=== PATIENT | male | born 1950 | race Caucasian/White ===

== ENCOUNTER 2016-09-26 10:04 | Inpatient (IN) | payer OTHER ==
[~2016-09-26] VITALS: Ht 170.2 cm; Wt 87.0 kg
[~2016-09-26 10:04] MED LIST: ASPIR-TRIN325 M1 PO; ASPIRIN E.C.81 M1 PO; ASPIRIN EC325 MG PO; ASPIRIN81 M1 PO; AXIRON90 ML TD; BRINTELLIX20 MG PO; CAFFEINE200 M1 PO; CELEBREX200 MG PO; CELECOXIB200 MG PO; CLOPIDOGREL75 MG PO; COMBIVENT RESPIM4 GM IH; CYCLOBENZAPRINE10 MG PO; CYMBALTA30 MG PO; CYMBALTA60 MG PO; FEOSOL325 MG PO; FERROCITE324 MG PO; GABAPENTIN800 MG PO; GLUCOPHAGE1000 MG PO; HYDROCODON-ACE1 EAC5 PO; HYZAAR 100-11 TABLET PO; IBUPROFEN800 MG PO; LIPITOR20 MG PO; LOSARTAN-HCTZ1 EAC3 PO; MELOXICAM15 MG PO; MORPHINE SULFAT15 MG PO; MULTI-VITAMIN-1 EACH PO; NIFEDIPINE ER90 MG PO; OXYCODONE HCL15 MG PO; OXYCODONE HCL5 MG PO; OXYCONTIN15 MG PO; Procardia XL,Adalat PO; SENOKOT S,PE1 TABLET PO; ST. JOSEPH ASPI81 MG PO; TAMSULOSIN HCL0.4 MG PO; THERAGRAN1 TABLET PO; TYLENOL REGULA325 MG PO; VITAMIN B125000 MCG PO; Vicodin,Lortab 5/500 PO
[2016-09-26 11:06] LABS: HEMATOCRIT 26.8 % (38.0-50.0); MCH 31.7 PG (29.0-34.0); MCV 93.4 FL (86-99); PLATELET COUNT 428 K/uL (156-360); RBC DIS.WIDTH-CV 13.5 % (11.8-14.6); RBC DIS.WIDTH-SD 44.4 % (39-53); RED BLOOD COUNT 2.87 M/uL (4.00-5.50); WHITE BLOOD COUNT 19.4 K/uL (4.1-10.2)
[2016-09-26 11:19] LABS: CHLORIDE 98 mEq/L (99-109); POTASSIUM 5.1 mEq/L (3.7-5.4); SODIUM 127 mEq/L (136-147)
[2016-09-26 11:20] LABS: GLUCOSE 101 mg/dL (70-99)
[2016-09-26 11:22] LABS: ANION GAP 12 MEQ/L (2-14)
[2016-09-26 11:24] LABS: GFR ESTIMATE (CALCULATED) 23 mL/min/
[2016-09-26 11:25] LABS: UREA NITROGEN (BUN) 56 mg/dL (9-23)
[2016-09-26 12:39] LABS: TOTAL BILIRUBIN 0.3 mg/dL (0.0-1.0)
[2016-09-26 12:40] LABS: ALKALINE PHOSPHATASE 94 IU/L (3-129)
[2016-09-26 12:42] LABS: DIRECT BILIRUBIN 0.2 mg/dL (0.0-0.3)
[2016-09-26 12:43] LABS: LIPASE 10 U/L (1.0-51.0)
[2016-09-26 12:47] LABS: TROP-I INTERPRETATION NEGATIVE; TROPONIN-I 0.02 ng/mL (0.0-0.30)
[2016-09-26 13:16] LABS: ADD MIUA? NO; BILIRUBIN NEGATIVE; BLOOD NEGATIVE; COLOR YELLOW ((YELLOW)); GLUCOSE (STRIP) NEGATIVE; KETONES NEGATIVE; LEUKOCYTES NEGATIVE; NITRITE NEGATIVE; PROTEIN (STRIP) 30; UCUL ADDED? NO; UROBILINOGEN 0.2 MG/DL (0.2-1.0)
[2016-09-26] MEDS ORDERED: LOSARTAN POTAS100 MG PO (14:26)
[2016-09-26] MEDS ORDERED: IBUPROFEN800 MG PO (14:26)
[2016-09-26] MEDS ORDERED: ALBUTEROL2.5 MG/3 M IH (14:27)
[2016-09-26] MEDS ORDERED: ACETAMINOPHEN325 M1 PO (14:32)
[2016-09-26] MEDS ORDERED: OXYCODONE HCL15 MG PO (14:34)
[2016-09-26 18:42] LABS: HEMATOCRIT 26.6 % (38.0-50.0); MCH 31.9 PG (29.0-34.0); MCHC 34.2 G/DL (30.0-36.0); MCV 93.3 FL (86-99); PLATELET COUNT 440 K/uL (156-360); RBC DIS.WIDTH-CV 13.6 % (11.8-14.6); RBC DIS.WIDTH-SD 44.4 % (39-53); RED BLOOD COUNT 2.85 M/uL (4.00-5.50); WHITE BLOOD COUNT 19.7 K/uL (4.1-10.2)
[2016-09-26 18:49] LABS: CHLORIDE 104 mEq/L (99-109); POTASSIUM 5.1 mEq/L (3.7-5.4); SODIUM 132 mEq/L (136-147)
[2016-09-26 18:51] LABS: GLUCOSE 118 mg/dL (70-99)
[2016-09-26 18:53] LABS: ANION GAP 12 MEQ/L (2-14)
[2016-09-26 18:55] LABS: GFR ESTIMATE (CALCULATED) 28 mL/min/
[2016-09-26 18:56] LABS: UREA NITROGEN (BUN) 49 mg/dL (9-23)
[2016-09-26 19:01] VITALS: BP 150/81
[2016-09-26 19:38] LABS: EOSINOPHIL (%) 0.3 % (0-5); EOSINOPHIL COUNT 0.1 K/uL (0-0.3); HEMATOLOGY COMMENT 1 SMEAR COMPATIBLE; IMMATURE GRANULOCYTE (%) 0.4 % (0.0-0.7); IMMATURE GRANULOCYTE COUNT 0.8 K/uL; LYMPHOCYTE COUNT 1.1 K/uL (1.0-2.8); MONOCYTE (%) 9.8 % (3-12); MONOCYTE COUNT 1.9 K/uL (0-0.8); NEUTROPHIL (%) 83.9 % (45-76); NEUTROPHIL COUNT 16.5 K/uL (1.8-6.4); PLAT.SUFFICIENCY ADEQUATE; USER ID NPD
[2016-09-26 20:49] VITALS: BP 136/78
[2016-09-26 22:41] VITALS: BP 115/61
[2016-09-26 22:54] LABS: POINT-OF-CARE METER ID UU13113725
[2016-09-27 03:06] VITALS: BP 137/80
[2016-09-27 05:57] LABS: POINT-OF-CARE METER ID UU13113725
[2016-09-27 06:09] LABS: ABSOLUTE RETICULOCYTE CT. 0.04 M/uL (0.02-0.08); HEMATOCRIT 26.3 % (38.0-50.0); IMM.RETIC FRACTION 21.9 % (3-19); MCH 32.2 PG (29.0-34.0); MCHC 34.6 G/DL (30.0-36.0); MCV 92.9 FL (86-99); MEAN PLAT.VOLUME 9.1 uM^3 (9.0-12.4); PLATELET COUNT 408 K/uL (156-360); RBC DIS.WIDTH-CV 13.9 % (11.8-14.6); RED BLOOD COUNT 2.83 M/uL (4.00-5.50); RETICULOCYTE COUNT 1.5 % (0.5-1.8); WHITE BLOOD COUNT 18.9 K/uL (4.1-10.2)
[2016-09-27 06:38] LABS: ANION GAP 12 MEQ/L (2-14); CHLORIDE 105 MEQ/L (99-109); EOSINOPHIL (%) 0.2 % (0-5); GFR ESTIMATE (CALCULATED) 38 mL/min/; IMMATURE GRANULOCYTE (%) 0.3 % (0.0-0.7); IMMATURE GRANULOCYTE COUNT 0.1 K/uL; IRON 12 MCG/DL (35-150); LYMPHOCYTE COUNT 0.9 K/uL (1.0-2.8); MONOCYTE (%) 12.4 % (3-12); MONOCYTE COUNT 2.3 K/uL (0-0.8); NEUTROPHIL (%) 82.2 % (45-76); NEUTROPHIL COUNT 15.5 K/uL (1.8-6.4); POTASSIUM 4.7 MEQ/L (3.7-5.4); SAMPLE HEMOLYSIS CHECK 0; SAMPLE ICTERIC CHECK 0; SAMPLE LIPEMIA CHECK 0; SODIUM 133 MEQ/L (136-147); UREA NITROGEN (BUN) 40 mg/dL (9-23)
[2016-09-27 06:43] LABS: GLUCOSE 86 mg/dL (70-99)
[2016-09-27 08:26] VITALS: BP 137/79
[2016-09-27 10:15] LABS: FERRITIN 230 NG/ML (22-322)
[2016-09-27 11:23] LABS: POINT-OF-CARE METER ID UU13113725
[2016-09-27 11:39] VITALS: BP 113/75
[2016-09-27 15:57] LABS: C DIFF TOXIN NEGATIVE (NEGATIVE)
[2016-09-27 15:59] LABS: POINT-OF-CARE METER ID UU13113725
[2016-09-27 16:11] VITALS: BP 119/75
[2016-09-27 16:22] LABS: PROBE CHECK PASS; SPECIMEN PROCESSING CONTROL PASS
[2016-09-27 20:25] LABS: UR CREATININE CONCENTRATION 83.2 MG/DL
[2016-09-27 22:02] LABS: URINE TOTAL PROTEIN 93 MG/DL (0-10)
[2016-09-27 23:36] VITALS: BP 114/58
[2016-09-28 06:17] LABS: POINT-OF-CARE METER ID UU13113725
[2016-09-28 07:11] LABS: MCH 30.6 PG (29.0-34.0); MCHC 32.6 G/DL (30.0-36.0); MCV 93.9 FL (86-99); MEAN PLAT.VOLUME 9.1 uM^3 (9.0-12.4); PLATELET COUNT 427 K/uL (156-360); RBC DIS.WIDTH-CV 14.4 % (11.8-14.6); RBC DIS.WIDTH-SD 49.5 % (39-53); WHITE BLOOD COUNT 16.5 K/uL (4.1-10.2)
[2016-09-28 07:31] LABS: EOSINOPHIL (%) 0.2 % (0-5); IMMATURE GRANULOCYTE (%) 0.5 % (0.0-0.7); IMMATURE GRANULOCYTE COUNT 0.1 K/uL; LYMPHOCYTE COUNT 1.7 K/uL (1.0-2.8); MONOCYTE COUNT 1.2 K/uL (0-0.8); NEUTROPHIL (%) 81.9 % (45-76); NEUTROPHIL COUNT 13.5 K/uL (1.8-6.4)
[2016-09-28 07:41] LABS: C3 COMPLEMENT 148 MG/DL (58-170); C4 COMPLEMENT 30 MG/DL (10-40)
[2016-09-28 08:00] VITALS: BP 124/67
[2016-09-28 08:03] LABS: INTACT PARATHYROID HORMONE 57 pg/mL (10-69)
[2016-09-28 08:23] LABS: ALKALINE PHOSPHATASE 96 IU/L (3-129); ANION GAP 14 MEQ/L (2-14); CHLORIDE 106 MEQ/L (99-109); GFR ESTIMATE (CALCULATED) 50 mL/min/; GLUCOSE 80 mg/dL (70-99); POTASSIUM 4.2 MEQ/L (3.7-5.4); SAMPLE HEMOLYSIS CHECK 0; SAMPLE ICTERIC CHECK 0; SAMPLE LIPEMIA CHECK 0; SODIUM 136 MEQ/L (136-147); TOTAL BILIRUBIN 0.3 MG/DL (0.0-1.0); UREA NITROGEN (BUN) 29 mg/dL (9-23)
[2016-09-28 10:54] LABS: HBSG INDEX 0.21
[2016-09-28 10:55] LABS: AHBS INDEX 0.23; HEPATITIS B SURFACE ANTIBODY Nonreactive; HPCA INDEX 0.37
[2016-09-28 11:28] LABS: POINT-OF-CARE METER ID UU13113725
[2016-09-28 11:33] VITALS: BP 128/70
[2016-09-28 13:05] LABS: IFE GEL NO. 28-4
[2016-09-28 16:15] VITALS: BP 118/68
[2016-09-28 17:00] VITALS: BP 120/73
[2016-09-28 17:42] LABS: INTER. NORMALIZED RATIO 1.1; PROTHROMBIN TIME 11.4 (9.2-11.2); PTT 34.8 (25-32)
[2016-09-28 19:47] VITALS: BP 108/57
[2016-09-29] VITALS: BP 111/68
[2016-09-29 04:00] VITALS: BP 139/84
[2016-09-29 06:24] LABS: CARBON DIOXIDE (BICARBONATE) 20.1 MEQ/L (20-31)
[2016-09-29 07:08] LABS: MCHC 34.4 G/DL (30.0-36.0); MCV 92.9 FL (86-99); MEAN PLAT.VOLUME 9.3 uM^3 (9.0-12.4); PLATELET COUNT 506 K/uL (156-360); RBC DIS.WIDTH-CV 14.6 % (11.8-14.6); RBC DIS.WIDTH-SD 49.7 % (39-53); RED BLOOD COUNT 2.69 M/uL (4.00-5.50)
[2016-09-29 07:52] LABS: ANION GAP 11 MEQ/L (2-14); ANION GAP 12 MEQ/L (2-14); CHLORIDE 105 MEQ/L (99-109); GFR ESTIMATE (CALCULATED) > 59 mL/min/; POTASSIUM 4.3 MEQ/L (3.7-5.4); SAMPLE HEMOLYSIS CHECK 0; SAMPLE ICTERIC CHECK 0; SAMPLE LIPEMIA CHECK 0; SODIUM 135 MEQ/L (136-147); UREA NITROGEN (BUN) 25 mg/dL (9-23); UREA NITROGEN (BUN) 26 mg/dL (9-23)
[2016-09-29 07:54] LABS: GLUCOSE 103 mg/dL (70-99); GLUCOSE 104 mg/dL (70-99)
[2016-09-29 08:26] LABS: ABS NEUTROPHIL COUNT 14.42; EOSINOPHIL (%) 0.2 % (0-5); HYPOCHROMASIA 1+; IMMATURE GRANULOCYTE (%) 0.9 % (0.0-0.7); IMMATURE GRANULOCYTE COUNT 0.2 K/uL; LYMPHOCYTE COUNT 1.6 K/uL (1.0-2.8); MONOCYTE COUNT 1.8 K/uL (0-0.8); NEUTROPHIL (%) 79.7 % (45-76); NEUTROPHIL COUNT 14.4 K/uL (1.8-6.4); PLAT.SUFFICIENCY INCREASED; POLYCHROMASIA OCC; USER ID MCB
[2016-09-29 08:44] VITALS: BP 114/65
[2016-09-29 08:53] LABS: POINT-OF-CARE METER ID UU13113781; POINT-OF-CARE USER ID NUTSLF44
[2016-09-29 11:46] VITALS: BP 112/74
[2016-09-29 12:28] LABS: POINT-OF-CARE METER ID UU13113781; POINT-OF-CARE USER ID NUTSLF44
[2016-09-29 15:46] VITALS: BP 104/64
[2016-09-29 17:15] LABS: POINT-OF-CARE METER ID UU13113781; POINT-OF-CARE USER ID NUTSLF44
[2016-09-29 19:50] VITALS: BP 115/72
[2016-09-30] VITALS (7 sets, daily range): BP systolic 118–157; BP diastolic 55–86
[2016-09-30 03:27] LABS: HEMATOCRIT 25.5 % (38.0-50.0); MCH 31.4 PG (29.0-34.0); MCHC 33.7 G/DL (30.0-36.0); MCV 93.1 FL (86-99); MEAN PLAT.VOLUME 8.3 uM^3 (9.0-12.4); PLATELET COUNT 554 K/uL (156-360); RBC DIS.WIDTH-CV 14.4 % (11.8-14.6); RBC DIS.WIDTH-SD 46.6 % (39-53); RED BLOOD COUNT 2.74 M/uL (4.00-5.50); WHITE BLOOD COUNT 16.2 K/uL (4.1-10.2)
[2016-09-30 03:37] LABS: EOSINOPHIL (%) 0.5 % (0-5); EOSINOPHIL COUNT 0.1 K/uL (0-0.3); IMMATURE GRANULOCYTE (%) 1.9 % (0.0-0.7); LYMPHOCYTE COUNT 1.2 K/uL (1.0-2.8); MONOCYTE (%) 10.2 % (3-12); MONOCYTE COUNT 1.7 K/uL (0-0.8)
[2016-09-30 03:58] LABS: CHLORIDE 107 mEq/L (99-109); POTASSIUM 4.4 mEq/L (3.7-5.4); SODIUM 137 mEq/L (136-147)
[2016-09-30 04:04] LABS: CHLORIDE 108 mEq/L (99-109); GLUCOSE 129 mg/dL (70-99); POTASSIUM 4.5 mEq/L (3.7-5.4); SODIUM 137 mEq/L (136-147)
[2016-09-30 04:05] LABS: GLUCOSE 128 mg/dL (70-99)
[2016-09-30 04:06] LABS: ANION GAP 10 MEQ/L (2-14)
[2016-09-30 04:07] LABS: ANION GAP 11 MEQ/L (2-14)
[2016-09-30 04:08] LABS: GFR ESTIMATE (CALCULATED) 54 mL/min/
[2016-09-30 04:09] LABS: GFR ESTIMATE (CALCULATED) 54 mL/min/; UREA NITROGEN (BUN) 27 mg/dL (9-23)
[2016-09-30 04:10] LABS: UREA NITROGEN (BUN) 26 mg/dL (9-23)
[2016-09-30 21:31] LABS: METH RESISTANT S AUREUS PCR NEGATIVE (NEGATIVE)
[2016-09-30 21:32] LABS: PROBE CHECK PASS; SPECIMEN PROCESSING CONTROL PASS
[2016-09-30 21:36] LABS: POINT-OF-CARE METER ID UU14174216
[2016-09-30 22:02] LABS: POINT-OF-CARE METER ID UU14174216
[2016-10-01 00:19] LABS: CHLORIDE 107 mEq/L (99-109); SODIUM 138 mEq/L (136-147)
[2016-10-01 00:21] LABS: GLUCOSE 158 mg/dL (70-99)
[2016-10-01 00:22] LABS: ANION GAP 12 MEQ/L (2-14); POTASSIUM 5.5 mEq/L (3.7-5.4)
[2016-10-01 00:25] LABS: GFR ESTIMATE (CALCULATED) 46 mL/min/
[2016-10-01 00:26] LABS: UREA NITROGEN (BUN) 29 mg/dL (9-23)
[2016-10-01 00:32] LABS: HEMATOCRIT 28.3 % (38.0-50.0); MCV 94.3 FL (86-99); WHITE BLOOD COUNT 19.4 K/uL (4.1-10.2)
[2016-10-01 00:33] LABS: MCH 31.3 PG (29.0-34.0); MCHC 33.2 G/DL (30.0-36.0); MEAN PLAT.VOLUME 9.3 uM^3 (9.0-12.4); MONOCYTE (%) 2.6 % (3-12); PLATELET COUNT 645 K/uL (156-360); RBC DIS.WIDTH-CV 14.6 % (11.8-14.6)
[2016-10-01 00:35] LABS: EOSINOPHIL (%) 0 % (0-5); IMMATURE GRANULOCYTE (%) 1.9 % (0.0-0.7); IMMATURE GRANULOCYTE COUNT 0.4 K/uL; LYMPHOCYTE COUNT 0.9 K/uL (1.0-2.8); MONOCYTE COUNT 0.5 K/uL (0-0.8); NEUTROPHIL (%) 90.7 % (45-76); NEUTROPHIL COUNT 17.6 K/uL (1.8-6.4)
[2016-10-01 04:28] VITALS: BP 136/74
[2016-10-01 07:04] VITALS: BP 136/75
[2016-10-01] MEDS ORDERED: VITAMIN D-32000 UNI2 PO (07:23)
[2016-10-01] MEDS ORDERED: BUSPAR10 MG PO (07:23)
[2016-10-01] MEDS ORDERED: AMOX TR-K CLV1 EAC4 PO (07:23)
[2016-10-01] MEDS ORDERED: SPIRIVA RESPIMAT4 GM IH (07:23)
[2016-10-01] MEDS ORDERED: PREDNISONE20 MG PO (07:23)
[2016-10-01] MEDS ORDERED: CARDIZEM CD,CA240 MG PO (07:23)
[2016-10-01 07:38] LABS: POINT-OF-CARE METER ID UU13113781; POINT-OF-CARE USER ID NUTSLF44
[2016-10-01 07:42] LABS: INTERNAL CONTROL VALID? YES
[2016-10-01 08:25] LABS: INTER. NORMALIZED RATIO 1.1; PROTHROMBIN TIME 11.4 (9.2-11.2)
[2016-10-01 08:29] LABS: PTT 33.1 (25-32)
[2016-10-01 11:55] VITALS: BP 138/90
[2016-10-01 11:58] LABS: TYPE OF FLUID THORACENTESIS
[2016-10-01 12:02] LABS: POINT-OF-CARE METER ID UU13113781; POINT-OF-CARE USER ID NUTSLF44
[2016-10-01 12:22] LABS: BODY FLUID RBC'S 3000 /MM^3 (0-100); BODY FLUID WBC'S 127 /MM^3 (0-500)
[2016-10-01] MEDS ORDERED: XARELTO20 MG PO (12:29)
[2016-10-01 12:35] LABS: BODY FLUID LDH 170 IU/L; BODY FLUID PROTEIN 3.2 G/DL
[2016-10-01 12:43] LABS: BODY FLUID EOSINOPHILS 1 % (0-25); MONO RAW COUNT 65; MONONUCLEAR WBC'S 65 %; POLY RAW COUNT 34; POLYNUCLEAR WBC'S 34 % (0-25)
[2016-10-01 13:23] LABS: LACTATE DEHYDROGENASE 126 IU/L (20-246)
[2016-10-01 13:26] LABS: GLUCOSE 114 mg/dL (70-99)
[2016-10-01 14:00] VITALS: BP 138/78
[2016-10-02 09:26] LABS: IFE GEL NO. 29-3
[2016-10-02 22:44] LABS: BODY FLUID PH 7.9 (())
== END 2016-10-01 14:00 | disposition home or self-care (01) | DRG 190 ==
LOC: RME 10:04 → EME 10:04 → EDOF 15:49 → 5EAST 15:49 → 4EAST 09-28 16:52
PROVIDERS: Family Medicine; Internal Medicine; Internal Medicine Cardiovascular Disease; Internal Medicine Infectious Disease; Internal Medicine Pulmonary Disease; Nurse Practitioner Adult Health; Pediatrics; Physician Assistant; Radiology Diagnostic Radiology
PROC: 0W993ZX Drainage of Right Pleural Cavity, Percutaneous Approach, Diagnostic (ICD-10-PCS; principal; 2016-10-01)
DX: J44.0 Chronic obstructive pulmonary disease with (acute) lower respiratory infection (principal); J18.9 Pneumonia, unspecified organism; N17.9 Acute kidney failure, unspecified; T39.395A Adverse effect of other nonsteroidal anti-inflammatory drugs [NSAID], initial encounter; E87.1 Hypo-osmolality and hyponatremia; E87.2 Acidosis; J90 Pleural effusion, not elsewhere classified; E23.0 Hypopituitarism; J44.1 Chronic obstructive pulmonary disease with (acute) exacerbation; R91.1 Solitary pulmonary nodule; I48.0 Paroxysmal atrial fibrillation; R41.82 Altered mental status, unspecified; E86.0 Dehydration; R80.9 Proteinuria, unspecified; N18.3 Chronic kidney disease, stage 3 (moderate); I12.9 Hypertensive chronic kidney disease with stage 1 through stage 4 chronic kidney disease, or unspecified chronic kidney disease; E11.22 Type 2 diabetes mellitus with diabetic chronic kidney disease; E11.21 Type 2 diabetes mellitus with diabetic nephropathy; D50.9 Iron deficiency anemia, unspecified; E78.5 Hyperlipidemia, unspecified; G47.33 Obstructive sleep apnea (adult) (pediatric); E55.9 Vitamin D deficiency, unspecified; F41.9 Anxiety disorder, unspecified; F32.9 Major depressive disorder, single episode, unspecified; G47.00 Insomnia, unspecified; M19.90 Unspecified osteoarthritis, unspecified site; Z86.73 Personal history of transient ischemic attack (TIA), and cerebral infarction without residual deficits; Z96.652 Presence of left artificial knee joint; F17.210 Nicotine dependence, cigarettes, uncomplicated; Z79.82 Long term (current) use of aspirin; Z79.02 Long term (current) use of antithrombotics/antiplatelets; Z98.1 Arthrodesis status; Z91.81 History of falling
CPT/HCPCS: 70450; 71010; 71020; 71250; 76770; 80048; 80048 91; 80053; 80069; 80076; 81003; 82140; 82306; 82436; 82570; 82728; 82803; 82945; 82947; 82948; 83540; 83615; 83615 91; 83690; 83970; 83986 90; 84100; 84155; 84156; 84157; 84300; 84443; 84466; 84484; 85025; 85025 91; 85027; 85045; 85610; 85730; 86160; 86334; 86335; 86706; 86803; 87040; 87070; 87116; 87205; 87206; 87340; 87449; 87493; 87641; 88108; 88305; 89051; 93005; 94640; 94640 76; 94760; 94799; 99202; 99281; 99285; J0456; J1170; J1756; J1815; J1940; J2543; J3010; J3370; J7030; J7050; J7120; J7509; J7512